=== PATIENT | female | born 1980 ===

== ENCOUNTER 2023-12-20 10:30 | Outpatient (RCR) | payer OTHER, SELFPAY ==
--- NOTE | 2023-12-06 13:00 | PT.OIE ---
Current Diagnoses Muscle weakness (generalized) (12/06/23) Stress incontinence (female) (male) (12/06/23) Other female genital prolapse (12/06/23) Visit Care Team Role Provider Type Laurie Jack MD Attending Provider Non-Staff Primary Care Provider Referring Provider Specialty: Medical Address: [facility] [address] [place], [address] Email: Physical Therapy Initial Evaluation PT-OP-A Visit Information Start: 12/06/23 08:14 Freq: Status: Active Protocol: Document 12/06/23 10:33 [facility] (Rec: 12/06/23 10:50 [facility] [id number]) Out-Patient Physical Therapy Visit Information Visit Information Visit Type Initial Evaluation Visit Start Time 10:35 Visit Stop Time 11:15 Visit Number 1 Evaluation Information Evaluation Date 12/06/23 PT-OP-B Current Condition Start: 12/06/23 08:14 Freq: Status: Active Protocol: Document 12/06/23 10:33 [facility] (Rec: 12/06/23 10:50 [facility] [id number]) Current Condition History of Current Condition Onset Date 6 weeks s/p hysterectomy Current Complaints urinary stress incontinence and cystocele with pelvic pressure History of Current Condition 6 weeks post op hysterectomy. Prior to her surgery pt is referred for pelvic floor strengthening, when she coughs she leaks. In July 2023 she had a coughing fit especially if she is not ready for it. She underwent a laporscopic hysterectomy and she feels like her bladder is moving when she is voiding. She does feel that she can feel pelvic pressure and has been careful not to lift heavy . PT-OP-C Subjective Start: 12/06/23 08:14 Freq: Status: Active Protocol: Document 12/06/23 10:30 [facility] (Rec: 12/08/23 08:16 [facility] [id number]) OP-PT Pain Assessment Location lower abdominal wall Pain Location Details tenderness at hysterectomy scar Intensity 1 Scale Used Numeric (0 - 10) PT-OP-I Pelvic Floor Start: 12/06/23 08:14 Freq: Status: Active Protocol: Document 12/06/23 10:30 [facility] (Rec: 12/07/23 12:45 [facility] [id number]) Pelvic Floor Assessment Urine Pelvic Floor Surgery Yes: hysterectomy Other Urinary Symptoms reports symptoms of bladder prolapse if bladder is full and with exertion or straining Leakage Size Small Leakage Cause Cough,Sneeze Nocturia 1 Pelvic Clock Pelvic Clock 12-3 Atrophy Pelvic Clock 3-6 Atrophy Pelvic Clock 6-9 Atrophy Pelvic Clock 9-12 Atrophy Prolapse Cystocele Grade 1 SEMG (uV) Baseline 2.0 10 Second Contraction 9 Recruitment Pattern Fair Relaxation Fair Holding Fair Stability of Hold Fair SEMG Stability of Rest Fair Contraction Ability Voluntary Contraction Weak Voluntary Relaxation Weak Manual Muscle Testing Left 3 Manual Muscle Testing Right 3 Manual Muscle Testing Anterior 3 Manual Muscle Testing Posterior 3 Muscle Endurance (Seconds) 4 Comments Pelvic Floor Comments EMG biofeedback average contraction is 9.2 at rest and max of 35 slightly elevated resting tone PT-OP-M Strength Start: 12/06/23 08:14 Freq: Status: Active Protocol: Document 12/06/23 10:33 [facility] (Rec: 12/08/23 08:36 [facility] [id number]) Trunk Strength Trunk Manual Muscle Testing Core Stabilization decreased Transverse abdominal stabilization s/p hysterectomy PT-OP-Q Treatments Start: 12/06/23 08:14 Freq: Status: Active Protocol: Document 12/06/23 10:33 [facility] (Rec: 12/06/23 17:52 [facility] [id number]) Therapeutic Exercises Supine Exercises pelvic floor long holds Reps/Minutes 10 reps 10 sec hold with 10 sec relaxation PT-OP-T Assessment and Plan Start: 12/06/23 08:14 Freq: Status: Active Protocol: Document 12/06/23 10:33 [facility] (Rec: 12/06/23 10:50 [facility] [id number]) Physical Therapy Assessment Rehab Potential Rehabilitation Potential Excellent Evaluation Complexity Number of Personal Factors/Comorbidities 0 Number of Body Systems Impaired 1-2 Clinical Presentation at Evaluation Stable Impairments Impairments Activity Tolerance,Functional Activities,Soft Tissue Mobility,Strength,Tone Other Impairments urinary stress incontinence Goals 3 Impairment pelvic heaviness and pressure with cystocele Short Term Goal (STG) Brissa is educated on positions that can decompress the pelvis and reduce c/o pelvic heaviness and pressure STG Duration 4 weeks Residential Goal (LTG) Brissa reports a overall reduction in complaints of pelvic heaviness and pressure and is able to return to gardening and recreational activities without increased symptoms LTG Duration 12 weeks 2 Impairment Urinary stress incontinence Tray Packer Goal (LTG) Brissa reports a overall reduction in urinary stress incontinence and is no longer leaking with cough or sneeze LTG Duration 12 weeks 1 Impairment 6 weeks s/p hysterectomy with pelvic floor and core weakness Short Term Goal (STG) Brissa is educated on a strengthening program for her pelvic floor and core musculature STG Duration 4 weeks Tray Packer Goal (LTG) Brissa presents with improved strength of the pelvic floor both with MMT and with EMG biofeedback readings LTG Duration 12 weeks Assessment Summary Assessment Brissa is a 43 year old female referred to PT for urinary stress incontinence and cystocele s/o hysterectomy . She began feeling symptoms of urinary leakage in July 2023 after a strong coughing episode. At this time she is 6 weeks s/p hysterectomy. Brissa reports she is being very careful not to lift heavy. She is feeling pelvic pressure and feels as if her bladder is moving when she voids. She reports urinary leakage with strong cough or sneeze or sudden movements. Brissa seeks PT to strengthen her pelvic floor and support her bladder to reduce c/o pelvic heaviness and stress incontinence. With exam today Brissa tests 3/5 MMT for all june of the levator ani. She has difficulty with sustaining a pelvic floor contraction more than 5 seconds. There is a grade 1 cystocele present. EMG biofeedback was initiated today for Brissa to begin working on endurance holds of the pelvic floor. She tolerated this well today and is a good candidate for pelvic PT. Treatment will also include pelvic decompression exercises, education on bladder irritants, hip strengthening and scar tissue mobilization over the abdominal scar tissue. Physical Therapy Plan Frequency and Duration Frequency of Treatment 1x/Week Duration of treatment (weeks) 12 Plan of Care Start Date 12/06/23 Next Visit Focus/Plan Next Note Type Treatment Note Next Visit Plan EMG biofeedback for pelvic floor endurance training, pelvic strengthening exercises , decompression exercises for the pelvic floor
--- NOTE | 2023-12-06 13:00 | PT.OPPOC ---
Physical, Occupational & Speech Therapy At [facility] Current Diagnoses Muscle weakness (generalized) (12/06/23) Stress incontinence (female) (male) (12/06/23) Other female genital prolapse (12/06/23) Visit Care Team Role Provider Type Laurie Jack MD Attending Provider Non-Staff Primary Care Provider Referring Provider Specialty: Medical Address: [address] [place] [address], [id number] Email: Plan Of Care PT-OP-T Assessment and Plan Start: 12/06/23 08:14 Freq: Status: Active Protocol: Document 12/06/23 10:33 [facility] (Rec: 12/06/23 10:50 [facility] [id number]) Physical Therapy Assessment Rehab Potential Rehabilitation Potential Excellent Evaluation Complexity Number of Personal Factors/Comorbidities 0 Number of Body Systems Impaired 1-2 Clinical Presentation at Evaluation Stable Impairments Impairments Activity Tolerance,Functional Activities,Soft Tissue Mobility,Strength,Tone Other Impairments urinary stress incontinence Goals 3 Impairment pelvic heaviness and pressure with cystocele Short Term Goal (STG) Brissa is educated on positions that can decompress the pelvis and reduce c/o pelvic heaviness and pressure STG Duration 4 weeks Skilled Nursing Goal (LTG) Brissa reports a overall reduction in complaints of pelvic heaviness and pressure and is able to return to gardening and recreational activities without increased symptoms LTG Duration 12 weeks 2 Impairment Urinary stress incontinence Skilled Nursing Goal (LTG) Brissa reports a overall reduction in urinary stress incontinence and is no longer leaking with cough or sneeze LTG Duration 12 weeks 1 Impairment 6 weeks s/p hysterectomy with pelvic floor and core weakness Short Term Goal (STG) Brissa is educated on a strengthening program for her pelvic floor and core musculature STG Duration 4 weeks Director Of Design Goal (LTG) Brissa presents with improved strength of the pelvic floor both with MMT and with EMG biofeedback readings LTG Duration 12 weeks Assessment Summary Assessment Brissa is a 43 year old female referred to PT for urinary stress incontinence and cystocele s/o hysterectomy . She began feeling symptoms of urinary leakage in July 2023 after a strong coughing episode. At this time she is 6 weeks s/p hysterectomy. Brissa reports she is being very careful not to lift heavy. She is feeling pelvic pressure and feels as if her bladder is moving when she voids. She reports urinary leakage with strong cough or sneeze or sudden movements. Brissa seeks PT to strengthen her pelvic floor and support her bladder to reduce c/o pelvic heaviness and stress incontinence. With exam today Brissa tests 3/5 MMT for all june of the levator ani. She has difficulty with sustaining a pelvic floor contraction more than 5 seconds. There is a grade 1 cystocele present. EMG biofeedback was initiated today for Brissa to begin working on endurance holds of the pelvic floor. She tolerated this well today and is a good candidate for pelvic PT. Treatment will also include pelvic decompression exercises, education on bladder irritants, hip strengthening and scar tissue mobilization over the abdominal scar tissue. Physical Therapy Plan Frequency and Duration Frequency of Treatment 1x/Week Duration of treatment (weeks) 12 Plan of Care Start Date 12/06/23 Next Visit Focus/Plan Next Note Type Treatment Note Next Visit Plan EMG biofeedback for pelvic floor endurance training, pelvic strengthening exercises , decompression exercises for the pelvic floor Plan of Care Dates Plan of Care Start Date 12/06/23 Electronically Signed by: Sheila Brewer, PT 12/08/23 0838 If you are in agreement with this Plan of Care, please return a signed and dated copy. I have reviewed this Plan of Care and certify that the skilled therapy services above are required to meet the patient?s needs. Physician Signature Date Printed Name and Credentials Clinical Instructor Signature Printed Name and Credentials
--- NOTE | 2023-12-21 09:02 | PT.OTN ---
Current Diagnoses Muscle weakness (generalized) (12/20/23) Stress incontinence (female) (male) (12/20/23) Other female genital prolapse (12/20/23) Physical Therapy Treatment Note PT-OP-A Visit Information Start: 12/06/23 08:14 Freq: Status: Active Protocol: Document 12/20/23 10:30 [facility] (Rec: 12/21/23 08:19 [facility] [id number]) Out-Patient Physical Therapy Visit Information Visit Information Visit Type Treatment Note Visit Start Time 10:30 Visit Stop Time 11:15 Visit Number 2 PT-OP-B Current Condition Start: 12/06/23 08:14 Freq: Status: Active Protocol: Document 12/06/23 10:33 [facility] (Rec: 12/06/23 10:50 [facility] [id number]) Current Condition History of Current Condition Onset Date 6 weeks s/p hysterectomy Current Complaints urinary stress incontinence and cystocele with pelvic pressure History of Current Condition 6 weeks post op hysterectomy. Prior to her surgery pt is referred for pelvic floor strengthening, when she coughs she leaks. In July 2023 she had a coughing fit especially if she is not ready for it. She underwent a laporscopic hysterectomy and she feels like her bladder is moving when she is voiding. She does feel that she can feel pelvic pressure and has been careful not to lift heavy . PT-OP-C Subjective Start: 12/06/23 08:14 Freq: Status: Active Protocol: Document 12/20/23 10:41 [facility] (Rec: 12/20/23 11:19 [facility] [id number]) OP-PT Subjective Patient Comments Patient Comments pt notes she feels more aware of her pelvic floor now and has been doing her exercises PT-OP-I Pelvic Floor Start: 12/06/23 08:14 Freq: Status: Active Protocol: Document 12/06/23 10:30 [facility] (Rec: 12/07/23 12:45 [facility] [id number]) Pelvic Floor Assessment Urine Pelvic Floor Surgery Yes: hysterectomy Other Urinary Symptoms reports symptoms of bladder prolapse if bladder is full and with exertion or straining Leakage Size Small Leakage Cause Cough,Sneeze Nocturia 1 Pelvic Clock Pelvic Clock 12-3 Atrophy Pelvic Clock 3-6 Atrophy Pelvic Clock 6-9 Atrophy Pelvic Clock 9-12 Atrophy Prolapse Cystocele Grade 1 SEMG (uV) Baseline 2.0 10 Second Contraction 9 Recruitment Pattern Fair Relaxation Fair Holding Fair Stability of Hold Fair SEMG Stability of Rest Fair Contraction Ability Voluntary Contraction Weak Voluntary Relaxation Weak Manual Muscle Testing Left 3 Manual Muscle Testing Right 3 Manual Muscle Testing Anterior 3 Manual Muscle Testing Posterior 3 Muscle Endurance (Seconds) 4 Comments Pelvic Floor Comments EMG biofeedback average contraction is 9.2 at rest and max of 35 slightly elevated resting tone PT-OP-M Strength Start: 12/06/23 08:14 Freq: Status: Active Protocol: Document 12/06/23 10:33 [facility] (Rec: 12/08/23 08:36 [facility] [id number]) Trunk Strength Trunk Manual Muscle Testing Core Stabilization decreased Transverse abdominal stabilization s/p hysterectomy PT-OP-Q Treatments Start: 12/06/23 08:14 Freq: Status: Active Protocol: Document 12/20/23 10:41 [facility] (Rec: 12/20/23 11:19 [facility] [id number]) Therapeutic Exercises Supine Exercises hip roll outs Reps/Minutes x 20 quick flicks Reps/Minutes x2 secon and sec off pelvic floor long holds Reps/Minutes 10 reps 10 sec hold with 10 sec relaxation Comments average of 10 and max of 23.5 uv Sidelying Exercises clam shells Reps/Minutes 2 x 10 Neuro Re-Education Treatment Other Activities EMG biofeedback for the pelvic floor Comments worked on neuro awareness of pelvic floor relaxation and cues were given for proper pelvic floor facilitation in supine working on endurance holds PT-OP-T Assessment and Plan Start: 12/06/23 08:14 Freq: Status: Active Protocol: Document 12/20/23 10:41 [facility] (Rec: 12/20/23 11:19 [facility] [id number]) Physical Therapy Assessment Goals 3 Impairment pelvic heaviness and pressure with cystocele Short Term Goal (STG) Brissa is educated on positions that can decompress the pelvis and reduce c/o pelvic heaviness and pressure STG Duration 4 weeks Division Sergeant Goal (LTG) Brissa reports a overall reduction in complaints of pelvic heaviness and pressure and is able to return to gardening and recreational activities without increased symptoms LTG Duration 12 weeks 2 Impairment Urinary stress incontinence Intermediate Goal (LTG) Brissa reports a overall reduction in urinary stress incontinence and is no longer leaking with cough or sneeze LTG Duration 12 weeks 1 Impairment 6 weeks s/p hysterectomy with pelvic floor and core weakness Short Term Goal (STG) Brissa is educated on a strengthening program for her pelvic floor and core musculature STG Duration 4 weeks Division Sergeant Goal (LTG) Brissa presents with improved strength of the pelvic floor both with MMT and with EMG biofeedback readings LTG Duration 12 weeks Assessment Summary Assessment Brissa did well with EMG biofeedback today and is showing improvments with endurance training of the pelvic floor. We are working on pelvic alma engagment prior to cough/sneeze Physical Therapy Plan Frequency and Duration Frequency of Treatment 1x/Week Duration of treatment (weeks) 12 Plan of Care Start Date 12/06/23 Next Visit Focus/Plan Next Visit Plan start to work on sit-stand next visit with hip activation as Brissa notes she will have to use her desk to push her up
--- NOTE | 2024-08-30 12:10 | PT.OPDS ---
Current Diagnoses Muscle weakness (generalized) (12/20/23) Stress incontinence (female) (male) (12/20/23) Other female genital prolapse (12/20/23) Visit Care Team Role Provider Type Laurie Jack MD Attending Provider Non-Staff Primary Care Provider Referring Provider Specialty: Medical Address: [facility] [address] [place], [address] Email: Visit Number Visit Number 2 Discharge Summary PT-OP-B Current Condition Start: 12/06/23 08:14 Freq: Status: Active Protocol: Document 12/06/23 10:33 [facility] (Rec: 12/06/23 10:50 [facility] [id number]) Current Condition History of Current Condition Onset Date 6 weeks s/p hysterectomy Current Complaints urinary stress incontinence and cystocele with pelvic pressure History of Current Condition 6 weeks post op hysterectomy. Prior to her surgery pt is referred for pelvic floor strengthening, when she coughs she leaks. In July 2023 she had a coughing fit especially if she is not ready for it. She underwent a laporscopic hysterectomy and she feels like her bladder is moving when she is voiding. She does feel that she can feel pelvic pressure and has been careful not to lift heavy . PT-OP-C Subjective Start: 12/06/23 08:14 Freq: Status: Active Protocol: Document 12/20/23 10:41 [facility] (Rec: 12/20/23 11:19 [facility] [id number]) OP-PT Subjective Patient Comments Patient Comments pt notes she feels more aware of her pelvic floor now and has been doing her exercises PT-OP-I Pelvic Floor Start: 12/06/23 08:14 Freq: Status: Active Protocol: Document 12/06/23 10:30 [facility] (Rec: 12/07/23 12:45 [facility] [id number]) Pelvic Floor Assessment Urine Pelvic Floor Surgery Yes: hysterectomy Other Urinary Symptoms reports symptoms of bladder prolapse if bladder is full and with exertion or straining Leakage Size Small Leakage Cause Cough,Sneeze Nocturia 1 Pelvic Clock Pelvic Clock 12-3 Atrophy Pelvic Clock 3-6 Atrophy Pelvic Clock 6-9 Atrophy Pelvic Clock 9-12 Atrophy Prolapse Cystocele Grade 1 SEMG (uV) Baseline 2.0 10 Second Contraction 9 Recruitment Pattern Fair Relaxation Fair Holding Fair Stability of Hold Fair SEMG Stability of Rest Fair Contraction Ability Voluntary Contraction Weak Voluntary Relaxation Weak Manual Muscle Testing Left 3 Manual Muscle Testing Right 3 Manual Muscle Testing Anterior 3 Manual Muscle Testing Posterior 3 Muscle Endurance (Seconds) 4 Comments Pelvic Floor Comments EMG biofeedback average contraction is 9.2 at rest and max of 35 slightly elevated resting tone PT-OP-M Strength Start: 12/06/23 08:14 Freq: Status: Active Protocol: Document 12/06/23 10:33 [facility] (Rec: 12/08/23 08:36 [facility] [id number]) Trunk Strength Trunk Manual Muscle Testing Core Stabilization decreased Transverse abdominal stabilization s/p hysterectomy PT-OP-T Assessment and Plan Start: 12/06/23 08:14 Freq: Status: Active Protocol: Document 08/30/24 12:09 [facility] (Rec: 08/30/24 12:10 [facility] [id number]) Physical Therapy Assessment Assessment Summary Assessment Brissa has not been seen since November of 2023. She will be discharged from PT at this time Physical Therapy Plan Discharge Physical Therapy Discharge Reasons No Longer Attending PT
== END 2024-08-30 14:37 | disposition home or self-care (01) ==
LOC: PHYS 10:30
PROVIDERS: PCP Obstetrics & Gynecology; Referring Provider Obstetrics & Gynecology; Visit Provider Obstetrics & Gynecology
DX: N81.89 Other female genital prolapse (principal); M62.81 Muscle weakness (generalized); N39.3 Stress incontinence (female) (male)
CPT/HCPCS: 97110; 97161